=== PATIENT | male | born 1940 | race Caucasian/White ===

== ENCOUNTER → 2017-07-26 | Outpatient (CLI) | payer MEDICARE, OTHER ==
[~2017-07-26] MED LIST: AMBIEN 5 MG TABL5 M1 PO; ASPIRIN EC81 M1 PO; CALCIUM 600 +1 EAC1 PO; CARVEDILOL12.5 MG PO; CARVEDILOL25 MG PO; CLONAZEPAM 0.50.5 M1 PO; COUMADIN 2 MG TA2 M1 PO; COUMADIN 3 MG TA3 M1 PO; COUMADIN 4 MG TA4 M1 PO; COZAAR; CRESTOR20 MG PO; CRESTOR40 MG PO; DYMISTA NASAL S23 GM NS; FISH OIL 1,0001 EAC5 PO; GLUCOSAMINE &1 EAC1 PO; LASIX 40 MG TAB40 M2 PO; LASIX 80 MG TAB80 M1 PO; LEVOTHROID50 MCG PO; NORVASC PO; NORVASC5 MG PO; PACERONE 200 M200 M1 PO; TIROSINT25 MCG PO; VICODIN 5-3001 EACH PO; VICODIN 5-5001 EACH PO; VIT B12 PO; ZOLOFT25 MG PO
== END ==
LOC: M.RAD 14:04
DX: S82.52XA Displaced fracture of medial malleolus of left tibia, initial encounter for closed fracture (principal); W19.XXXA Unspecified fall, initial encounter; Y93.89 Activity, other specified; Y92.89 Other specified places as the place of occurrence of the external cause; Y99.8 Other external cause status

== ENCOUNTER 2019-03-12 16:56 | Inpatient (IN) | payer MEDICARE, OTHER ==
[~2019-03-12] VITALS: Ht 177.8 cm; Wt 132.4 kg
[~2019-03-12 16:56] MED LIST changes: -CLARITIN10 M3 PO; -DILTIAZEM ER180 M2 PO; -HYDROCODON-ACE1 EAC7 PO; -IPRAT-ALBUT 0.5-3 ML INH; -KEFLEX500 M1 PO; -LASIX 40 MG TAB40 MG PO; -MONTELUKAST SODI4 M1 PO; -VOLTAREN GEL 1100 G1 TOP; -XARELTO20 MG PO
[2019-03-12 17:16] VITALS: BP 145/84
[2019-03-12] MEDS ORDERED: DILTIAZEM ER180 M2 PO (17:27)
[2019-03-12] MEDS ORDERED: CARVEDILOL25 MG PO (17:27)
[2019-03-12] MEDS ORDERED: LASIX 40 MG TAB40 MG PO (17:27)
[2019-03-12] MEDS ORDERED: CLARITIN10 M3 PO (17:28)
[2019-03-12] MEDS ORDERED: XARELTO20 MG PO (17:28)
[2019-03-12] MEDS ORDERED: CRESTOR40 MG PO (17:28)
[2019-03-12] MEDS ORDERED: MONTELUKAST SODI4 M1 PO (17:28)
[2019-03-12] MEDS ORDERED: IPRAT-ALBUT 0.5-3 ML INH (17:29)
[2019-03-12 18:27] LABS: ABSOLUTE EOSINOPHILS 0.1 thou/uL (0.0-0.7); ABSOLUTE NEUTROPHILS 4.6 thou/uL (1.6-8.1); BASOPHILS 0.5 %; LYMPHOCYTES 14.6 %; MCH 33.4 pg (26.0-34.0); MCHC 33.5 g/dL (28.0-37.0); MCV 99.8 fL (80.0-100.0); MONOCYTES 15.1 %; MPV 7.9 fl. (7.2-11.1); NUCLEATED RBCS 0 /100WBC; PLATELET COUNT* 221 thou/uL (150-400); POLYS 68.8 %; RDW-CV 15.2 % (10.5-14.5); WBC 6.7 thou/uL (4.0-11.0)
[2019-03-12 18:37] LABS: CALCIUM 9.3 mg/dL (8.5-10.1); CREATININE 1.9 mg/dL (0.6-1.3); POTASSIUM 4.4 mmol/L (3.5-5.1)
[2019-03-12 18:41] LABS: ALBUMIN 3.2 g/dL (3.4-5.0); TOTAL BILIRUBIN 0.8 mg/dL (<0.1-1.0); TOTAL PROTEIN 7.3 g/dL (6.4-8.2)
[2019-03-12 19:30] VITALS: BP 152/78
[2019-03-12 19:45] LABS: ESR (SEDRATE) 63 mm/hr (0-20)
[2019-03-12 20:00] VITALS: BP 155/81
[2019-03-13 07:00] LABS: BF RBC 15250 /mm3; TOTAL CELL COUNT 56803 /mm3
[2019-03-13 07:03] LABS: CLARITY CLOUDY; TOTAL VOLUME 6 ml
[2019-03-13 07:06] LABS: BF LYMPHOCYTES 0 %; BF MONOCYTES 0 %; BF POLYS 100 %; BF TISSUE 13 /100 WBC
[2019-03-13 07:25] LABS: SOURCE SYNOVAIL
[2019-03-13 08:20] VITALS: BP 148/79
[2019-03-13 08:46] LABS: ABSOLUTE EOSINOPHILS 0.1 thou/uL (0.0-0.7); ABSOLUTE LYMPHOCYTES 0.9 thou/uL (0.8-5.3); ABSOLUTE MONOCYTES 0.8 thou/uL (0.0-1.2); ABSOLUTE NEUTROPHILS 5.1 thou/uL (1.6-8.1); BASOPHILS 0.6 %; EOSINOPHILS 1.4 %; HEMATOCRIT 34.7 % (42.0-52.0); HEMOGLOBIN 11.7 gm/dL (14.0-18.0); LYMPHOCYTES 12.9 %; MCH 33.6 pg (26.0-34.0); MCHC 33.8 g/dL (28.0-37.0); MCV 99.4 fL (80.0-100.0); MONOCYTES 11.5 %; MPV 7.5 fl. (7.2-11.1); NUCLEATED RBCS 0 /100WBC; PLATELET COUNT* 245 thou/uL (150-400); POLYS 73.6 %; RBC 3.49 mil/uL (4.50-6.00)
[2019-03-13 08:54] LABS: CALCIUM 9.4 mg/dL (8.5-10.1); CREATININE 1.5 mg/dL (0.6-1.3); POTASSIUM 4.1 mmol/L (3.5-5.1)
[2019-03-13 08:56] LABS: APTT 41.7 Seconds (25.0-31.3); INR 1.3; PROTIME 13.2 Seconds (9.20-11.50)
[2019-03-13 08:58] LABS: ALBUMIN 3.3 g/dL (3.4-5.0); MAGNESIUM 2.4 mg/dL (1.8-2.4); PHOSPHORUS* 3.1 mg/dL (2.5-4.9); TOTAL PROTEIN 7.8 g/dL (6.4-8.2)
--- NOTE | 2019-03-13 10:33 | EKG ---
[place] [address] ELECTROCARDIOGRAM REPORT Name: TIFFANY SHULTZ Room: [address] IN M.R.#: [id number] Admission: 03/12/19 Attend Phys: Asa Cardona MD Discharge: Date of : 38 Report #: [id number] THIS REPORT FOR: //name// [facility] Test Date: 2019-03-13 Test Time: 08:30:37 Pat Name: TIFFANY SHULTZ Department: Room: [address] Gender: M Maintenance Supervisor: : 1940 Requested By: Norm Alfaro Order Number: [id number] Dima FOSTER: Jamarcus Plaza Measurements Intervals [place] Rate: 100 P: MS: QRS: 52 QRSD: 119 T: -53 QT: 359 QTc: 463 Interpretive Statements Atrial fibrillation Ventricular premature complex Incomplete left bundle branch block Low voltage, extremity leads Anterior Q waves, possibly due to ILBBB No previous ECG available for comparison Electronically Signed On 03-13-2019 10:33:03 PRODUCT SAFETY MANAGER by Jamarcus Plaza [email or web address] <ELECTRONICALLY SIGNED> By: Jamarcus Plaza MD, [facility] 03/13/19 1033 Jamarcus Plaza MD, [facility] /EPI
[2019-03-13 12:03] LABS: URINE BILIRUBIN NEGATIVE (Negative); URINE BLOOD 1+ (Negative); URINE CLARITY CLEAR; URINE COLOR YELLOW; URINE GLUCOSE-RANDOM NEGATIVE (Negative); URINE KETONES NEGATIVE (Negative); URINE LEUKOCYTES-REFLEX NEGATIVE (Negative); URINE NITRITE-REFLEX NEGATIVE (Negative); URINE PROTEIN 2+ (Negative); URINE SPECIFIC GRAVITY 1.025 (1.005-1.030)
[2019-03-13 13:02] LABS: SQUAMOUS 4-10 Moderate /LPF (0-3); URINE WBC-REFLEX None Seen /HPF (0-5)
[2019-03-13 13:03] LABS: URINE RBC 0-2 Rare /HPF (0-2)
[2019-03-13 13:04] LABS: BACTERIA-REFLEX 1-9 Few /HPF (None Seen); COARSE GRANULAR CASTS 0-3 Few /LPF (None Seen); CRYSTALS None Seen /LPF (None Seen); MUCUS 4-6 Moderate strn/LPF (None Seen)
[2019-03-13 13:22] VITALS: BP 155/81
[2019-03-13 13:52] LABS: CASTS None Seen /LPF (None Seen)
[2019-03-13 20:28] VITALS: BP 145/81
[2019-03-14 02:07] LABS: HEPATITIS B SURFACE AG Negative (Negative)
--- NOTE | 2019-03-14 05:56 | CON ---
[address] [address] CONSULTATION Name: TIFFANY SHULTZ Room: [address] IN .R.#: [id number] Admission: 03/12/19 Attend Phys: Asa Cardona MD Discharge: Date of : 38 Report #: [id number] THIS REPORT FOR: //name// CC: Asa Ricardodarren DATE OF SERVICE: 03/13/2019 INFECTIOUS DISEASE CONSULTATION ATTENDING PHYSICIAN: Asa Cardona MD. REASON FOR EVALUATION: Right knee septic arthritis. HISTORY OF PRESENT ILLNESS: Chart reviewed, patient examined. This is a 78-year-old gentleman with history of right knee pain associated with degenerative joint disease, has had previous corticosteroid injections, most recently 02/26, developed right knee pain and swelling roughly 1 week later. Per report, had not had significant systemic illness. He was evaluated with aspiration and was felt to have overt inflammatory changes. He was taken to the OR for an operative arthroscopic lavage and 3-compartment synovectomy. He is seen in the postoperative area. Denies any pulmonary related complaints, hemodynamically is generally stable. Empirically started on cefazolin. ALLERGIES: DIGOXIN. CURRENT MEDICATIONS: Include cefazolin 3 g IV q. 8 hours, p.r.n. analgesics and antiemetics, carvedilol, diltiazem CD, atorvastatin, montelukast, glucosamine, sertraline, loratadine, furosemide and rivaroxaban. PAST MEDICAL HISTORY: As described above, hypertension, history of high cholesterol, known atherosclerotic coronary artery disease with previous acute myocardial infarction, history of atrial fibrillation, cardiomyopathy with congestive heart failure, placement of defibrillator, obstructive sleep apnea, utilizes CPAP. SOCIAL HISTORY: Nonsmoker. Occasional ethanol. FAMILY HISTORY: Noncontributory. REVIEW OF SYSTEMS: Somewhat limited due to his postoperative state. PHYSICAL EXAMINATION: GENERAL: He is lethargic. He does arouse. Seemingly [id number] distress at this point, does not appear overtly undernourished. VITAL SIGNS: Temperature 97.8, pulse 98, respirations 20, [place] [address] CONSULTATION Name: TIFFANY SHULTZ Room: [address]#: [id number] Admission: 03/12/19 Attend Phys: Asa Cardona MD Discharge: Date of : 38 Report #: [id number] 155/81. SKIN: Warm, dry, no rashes. HEENT: Has a mask in place to deliver supplemental oxygen. Normocephalic. Extraocular muscles intact. NECK: Supple. LUNGS: Somewhat diminished overall. HEART: Regular. Borderline tachycardic. I do not appreciate a murmur. ABDOMEN: Soft, nontender, nondistended. Right knee has a compressive dressing. GENITOURINARY AND RECTAL: Deferred. LABORATORY DATA: Recent urinalysis otherwise unremarkable, no white cells seen. Lactic acid 0.9. Chest x-ray: Cardiomegaly. PT 13.2, INR 1.3. Electrolytes: Sodium 142, potassium 4.1, chloride 104, bicarbonate is 30, anion gap of 8, BUN and creatinine 24 and 1.5, albumin of 3.3. Total protein of 7.8. LFTs showed ALT of 114. AST of 115. Body fluid analysis showed 56,800 white cells, 100% poly, Gram stain, many wbc's, no organisms seen. Culture pending. CBC: White count 6.7, H and H 11.0 and 32.0, platelets of 221. Differential unremarkable. Sed rate of 63. CRP elevated at 163.9. CT of the lower extremity showed tricompartmental knee osteoarthritis, more so within the lateral patellofemoral compartment without acute osseous abnormality. Venous Doppler showed no evidence of deep venous thrombosis. ASSESSMENT AND PLAN: Right knee septic arthritis, likely as a complication of previous knee injection. Continue the cefazolin for now, await results. Discussed with Dr. Mei, we will have to monitor expectantly. He does have some increased risk for nosocomial related infectious complications. We will add incentive spirometry. Elevated LFTs, check a hepatitis C antibody as well. <ELECTRONICALLY SIGNED> By: Freddy Joseph MD 03/14/19 0556 1618 [id number] Joseph MD /nt
[2019-03-14 07:58] VITALS: BP 136/65
--- NOTE | 2019-03-14 13:40 | OP ---
[address] [address] OPERATIVE REPORT Name: TIFFANY SHULTZ Room: [address] IN [facility]#: [id number] Admission: 03/12/19 Attend Phys: Asa Cardona MD Discharge: Date of : 38 Report #: [id number] THIS REPORT FOR: //name// CC: Asa Hook DATE OF SERVICE: 03/13/2019 PREOPERATIVE DIAGNOSIS: Septic arthritis, shawnee right knee. POSTOPERATIVE DIAGNOSIS: Septic arthritis, shawnee right knee. PROCEDURES PERFORMED: Right knee arthroscopic lavage and 3-compartment synovectomy. SURGEON: Jose Mei DO ENTERTAINMENT REPORTER: Jose Gutierrez DO SECOND FINISH SANDER: Dr. Crespo. ANESTHESIA: General anesthetic. ANTIBIOTICS: The patient did receive 2 grams of Ancef intravenous piggyback preoperatively. SPECIMENS: Tissue culture specimen, synovial fluid culture specimen. ESTIMATED BLOOD LOSS: Minimal. DRAINS: None. COMPLICATIONS: None. GROSS FINDINGS: Prior to surgery, the patient had been seen at another clinic somewhere else not related to this institution, had previous injections in his right knee region, presented to the emergency room with a painful swollen right knee region. The patient's initial aspiration done this morning revealed a significantly elevated 58,000 cell count with 100% polys within the knee. The patient had a sed rate elevated in the 60 ranges and a CRP 170. The patient intraoperatively correlated with hypertrophic synovitis throughout the knee and very murky synovial fluid was noted upon the initial entering of the right knee. SURGERY IN DETAIL: This very pleasant gentleman was taken to the operating room, placed on table, and given the benefit of general anesthetic. He did have a well-padded tourniquet placed high on his right thigh, but we did not use it [address] [address] OPERATIVE REPORT Name: TIFFANY SHULTZ Room: [address] IN [facility]#: [id number] Admission: 03/12/19 Attend Phys: Asa Cardona MD Discharge: Date of : 38 Report #: [id number] during surgery. His leg was placed in knee holland in standard fashion. The right leg underwent chlorhexidine prep and sterile draping for right knee surgery. Time-out was called and verified by everyone in the room for the right knee. The patient previously did have the marking of the knee done and verified as well. Surgery continued with making 2 standard arthroscopic portal incisions within the medial and inferolateral aspects of the knee. Arthroscope was put inferolaterally. At this point in time, I made another entry point with another trocar to the medial side of the knee and lavaged with 6000 mL of normal saline through the knee initially. Scope was then placed in the suprapatellar pouch region with the arthroscopic shaver. Tissue samples were biopsied and sent for specimen. I did go ahead and do a 3-compartment synovectomy clearing out significant hypertrophic synovitis as well. At this point in time, then as much water was removed from the knee as could be, he did have a total of 12,000 mL lavage through the knee. The patient's knee was infiltrated with 0.25% Marcaine 20 mL. Portal sites were closed in simple fashion of 3-0 nylon. Xeroform, 4x4s, Kerlix, soft roll, and Jeff dressing were applied to the right knee region; transferred off the table; taken to Recovery in stable condition. I attest I was present for all critical aspects of surgery. His needle, instruments, and sponge counts were correct. <ELECTRONICALLY SIGNED> By: Jose Mei DO 03/14/19 1340 [id number] [id number] Mei DO /nt
[2019-03-14 19:56] VITALS: BP 139/69
[2019-03-15 06:04] LABS: HEMATOCRIT 31.6 % (42.0-52.0); HEMOGLOBIN 10.6 gm/dL (14.0-18.0); MCH 33.2 pg (26.0-34.0); MCHC 33.6 g/dL (28.0-37.0); MPV 8.1 fl. (7.2-11.1); RBC 3.19 mil/uL (4.50-6.00); WBC 6.8 thou/uL (4.0-11.0)
[2019-03-15 06:08] LABS: CREATININE 1.5 mg/dL (0.6-1.3); MAGNESIUM 2.1 mg/dL (1.8-2.4); POTASSIUM 4.1 mmol/L (3.5-5.1)
[2019-03-15 09:00] VITALS: BP 130/69
[2019-03-15 17:02] LABS: SOURCE RIGHT KNEE
[2019-03-15 19:30] VITALS: BP 139/70
[2019-03-16] VITALS: BP 132/65
[2019-03-16 05:00] VITALS: BP 141/71
[2019-03-16 16:26] VITALS: BP 116/56
[2019-03-16 19:50] VITALS: BP 136/56
[2019-03-17 00:14] VITALS: BP 119/56
[2019-03-17 04:00] VITALS: BP 132/57
[2019-03-17] MEDS ORDERED: VOLTAREN GEL 1100 G1 TOP (07:34)
[2019-03-17] MEDS ORDERED: HYDROCODON-ACE1 EAC7 PO (07:34)
[2019-03-17 08:07] VITALS: BP 138/57
[2019-03-17 10:23] VITALS: BP 138/57
[2019-03-17] MEDS ORDERED: KEFLEX500 M1 PO (10:34)
== END 2019-03-17 12:01 | disposition home or self-care (01) | DRG 485 ==
LOC: M.ERS 16:56 → M.ORTHSURG 18:58 → M.TBA-ER 18:58 → M.ORTHSURG 19:42
PROVIDERS: Family Medicine; Internal Medicine; Orthopaedic Surgery; Specialist; ADMIT Internal Medicine
PROC: 0SBC4ZZ Excision of Right Knee Joint, Percutaneous Endoscopic Approach (ICD-10-PCS; principal; 2019-03-13)
PROC: 5A09357 Assistance with Respiratory Ventilation, Less than 24 Consecutive Hours, Continuous Positive Airway Pressure (ICD-10-PCS; principal; 2019-03-13)
PROC: 3E1U48Z Irrigation of Joints using Irrigating Substance, Percutaneous Endoscopic Approach (ICD-10-PCS; principal; 2019-03-13)
DX: M00.9 Pyogenic arthritis, unspecified (principal); N17.0 Acute kidney failure with tubular necrosis; I42.9 Cardiomyopathy, unspecified; I50.22 Chronic systolic (congestive) heart failure; D68.59 Other primary thrombophilia; I48.20 Chronic atrial fibrillation, unspecified; L03.115 Cellulitis of right lower limb; Z68.41 Body mass index [BMI] 40.0-44.9, adult; I13.0 Hypertensive heart and chronic kidney disease with heart failure and stage 1 through stage 4 chronic kidney disease, or unspecified chronic kidney disease; E78.00 Pure hypercholesterolemia, unspecified; I25.10 Atherosclerotic heart disease of native coronary artery without angina pectoris; G47.33 Obstructive sleep apnea (adult) (pediatric); F41.1 Generalized anxiety disorder; F32.9 Major depressive disorder, single episode, unspecified; E66.9 Obesity, unspecified; M13.861 Other specified arthritis, right knee; N18.3 Chronic kidney disease, stage 3 (moderate); Z95.810 Presence of automatic (implantable) cardiac defibrillator; I25.2 Old myocardial infarction; Z95.5 Presence of coronary angioplasty implant and graft; Z88.8 Allergy status to other drugs, medicaments and biological substances

== ENCOUNTER → 2019-03-12 | Outpatient (CLI) | payer MEDICARE, OTHER ==
[~2019-03-12] MED LIST changes: +CLARITIN10 M3 PO; -COZAAR; +COZAAR 25 MG TA25 M2 PO; +DILTIAZEM ER180 M2 PO; +HYDROCODON-ACE1 EAC7 PO; +IPRAT-ALBUT 0.5-3 ML INH; +KEFLEX500 M1 PO; +LASIX 40 MG TAB40 MG PO; +MONTELUKAST SODI4 M1 PO; +VOLTAREN GEL 1100 G1 TOP; +XARELTO20 MG PO
== END ==
LOC: M.ULTRA 15:02
DX: M79.89 Other specified soft tissue disorders (principal)

== ENCOUNTER 2019-12-17 12:36 | Emergency (ER) | payer MEDICARE, OTHER ==
[~2019-12-17] VITALS: Ht 175.3 cm; Wt 113.4 kg
[~2019-12-17 12:36] MED LIST changes: +CLARITIN10 M3 PO; +DILTIAZEM ER180 M2 PO; +HYDROCODON-ACE1 EAC7 PO; +IPRAT-ALBUT 0.5-3 ML INH; +KEFLEX500 M1 PO; +LASIX 40 MG TAB40 MG PO; +MONTELUKAST SODI4 M1 PO; +VOLTAREN GEL 1100 G1 TOP; +XARELTO20 MG PO
[2019-12-17 14:04] VITALS: BP 116/60
== END 2019-12-17 14:05 | disposition home or self-care (01) ==
LOC: M.ERS 12:36
DX: S80.02XA Contusion of left knee, initial encounter (principal); I10 Essential (primary) hypertension; E78.00 Pure hypercholesterolemia, unspecified; I48.91 Unspecified atrial fibrillation; I11.0 Hypertensive heart disease with heart failure; I50.22 Chronic systolic (congestive) heart failure; E66.9 Obesity, unspecified; G47.30 Sleep apnea, unspecified; Z88.8 Allergy status to other drugs, medicaments and biological substances; Z68.36 Body mass index [BMI] 36.0-36.9, adult; W01.0XXA Fall on same level from slipping, tripping and stumbling without subsequent striking against object, initial encounter; Y93.89 Activity, other specified; Y92.89 Other specified places as the place of occurrence of the external cause; Y99.8 Other external cause status